=== PATIENT | male | born 2000 | race Caucasian/White ===

== ENCOUNTER 2019-12-25 09:39 | Outpatient (CLI) | payer OTHER ==
--- NOTE | 2019-12-26 09:30 | MRI ---
MR OF THE PELVIS WITHOUT IV CONTRAST: 12/25/19 INDICATION: History of bilateral hip pain and concern for abductor tears bilaterally. FINDINGS: Within the region of the right gluteus minimus attachment there is some subchondral bone marrow edema with a small focal linear area of diminished T1 and T2 signal intensity in the subcortical bone dwain picious for a small subcortical stress fracture. There is mild surrounding edema. There is mild glute us minimus trochanteric bursitis. There is some mild subgluteus medius bursitis. The right hamstring origin and right iliopsoas appears within normal limits. There is a partial thickness articular surfa ce tear involving the posterior right gluteus minimus and the anterior right gluteus medius tendon at the attachment. There is some increased edema involving the origin of the left vastus lateralis at the level of the l ateral left greater trochanter. There is some mild underlying bone marrow edema seen near the origin site. No additional bone marrow signal abnormality is evident. No joint effusion is evident. The left hip adductor insertions appear within normal limits. The Left hamstring and iliopsoas appear within normal limits. No definite paralabral cyst is seen within either hips. Articular cartilage appears well maintained. The visualized intrapelvic contents appear within normal limits. IMPRESSION: 1. Small subcortical insufficiency fracture involving the right greater trochanter with associat ed right greater trochanteric bursitis. There is a partial thickness tear involving the anterior righ t gluteus medius and posterior right gluteus minimus tendon at the insertion with associated trochant fabian bursitis. 2. There is mild muscular strain involving the origin of the left vastus lateralis with some und erlying subcortical edema involving the lateral greater trochanter. POS: [facility]
== END 2019-12-25 09:40 | disposition home or self-care (01) ==
LOC: SCSMRI 09:39
PROVIDERS: ATTEND Orthopaedic Surgery
DX: M25.551 Pain in right hip (principal); M25.552 Pain in left hip; M84.459A Pathological fracture, hip, unspecified, initial encounter for fracture; M70.61 Trochanteric bursitis, right hip; S76.311A Strain of muscle, fascia and tendon of the posterior muscle group at thigh level, right thigh, initial encounter; R60.0 Localized edema
CPT/HCPCS: 72195